=== PATIENT | male | born 1950 ===

== ENCOUNTER 2017-04-23 00:03 | Emergency (ER) | payer MEDICARE, OTHER ==
[2017-04-23 00:41] VITALS: BP 145/85; PULSE 93; RESP 16; TEMP 97.1; O2SAT 98
--- NOTE | 2017-04-23 01:41 | ED PDOC ---
Upper Extremity Pain/Injury Time Seen by Provider: 04/23/17 00:05 Chief Complaint (Nursing): Upper Extremity Problem/Injury Chief Complaint (Provider): Upper Extremity Problem History Per: Patient History/Exam Limitations: no limitations Additional Complaint(s): 67 year old male presents to ED with complaints of a left upper extremity problem and has a past medical history of hypercholesterolemia, HTN, and HIV. Patient notes that years ago he rhad surgery for a left arm fracture with plate. Notes that he believes the plate has moved and requests and evaluation. Patient denies any pain or fever. PCP: None Past Medical History Reviewed: Historical Data, Nursing Documentation, Vital Signs Vital Signs: Last Vital Signs Temp 97.1 F L 04/23/17 00:38 Pulse 93 H 04/23/17 00:38 Resp 16 04/23/17 00:38 BP 145/85 04/23/17 00:38 Pulse Ox 98 04/23/17 00:38 - Medical History PMH: Depression, Fractures, HIV, HTN, Hypercholesterolemia - Surgical History Other surgeries: Left arm surgery - Family History Family History: States: Unknown Family Hx - Home Medications Home Medications: Ambulatory Orders Medication Instructions Recorded Darunavir Ethanolate [Prezista] 600 mg PO 07/01/15 Efavirenz [Sustiva] 600 mg PO 07/01/15 [facility] 07/01/15 - Allergies Allergies/Adverse Reactions: Allergies Allergy/AdvReac Type Severity Reaction Status Date / Time No Known Allergies Allergy Verified 07/01/15 19:49 Review of Systems ROS Statement: Except As Marked, All Systems Reviewed And Found Negative Constitutional: Negative for: Fever Musculoskeletal: Negative for: Shoulder Pain, Arm Pain, Hand Pain Physical Exam - Reviewed Nursing Documentation Reviewed: Yes Vital Signs Reviewed: Yes - Physical Exam Appears: Positive for: Non-toxic, No Acute Distress Skin: Positive for: Normal Color, Warm, Dry Respiratory: Negative for: Respiratory Distress Pulses-Radial (L): 2+ Pulses-Radial (R): 2+ Extremity: Positive for: Normal ROM (full ROM to left hand digits), Other (Left wrist is in a splint. Neurovascularly intact). Negative for: Deformity, Swelling Neurologic/Psych: Positive for: Alert, Oriented. Negative for: Motor/Sensory Deficits - ECG O2 Sat by Pulse Oximetry: 98 (RA) Pulse Ox Interpretation: Normal Medical Decision Making Medical Decision Makin Initial impression: arm pain r/o fracture Initial plan: * Acetaminophen 650mg PO * XR ELBOW LEFT * XR FOREARM LEFT * Re-eval 0224 XR ELBOW LEFT FINDINGS Bones/joints: There is plate and screw fixation of the ulna. The hardware isn't completely visualized. No hardware complications are identified. Degenerative changes within the ulna humeral joint. No acute fracture. No dislocation. Soft tissues: Unremarkable. IMPRESSION: No acute findings. 0225 XR FOREARM LEFT FINDINGS Bones/joints: Plate and screw fixation of the ulna. Degenerative changes involving the ulnohumeral joint. No acute fracture. No dislocation. Soft tissues: Unremarkable. IMPRESSION: No acute findings. 0240 As both XRs show no fractures or acute disease, patient is stable for discharge home. Return precautions discussed with patient. Patient made aware of XR findings and instructed to follow up with clinic in 1-2 days as well as [facility] medical records for copies of XR readings. Scribe Attestation: Documented by Ritu Mcknight acting as a scribe for Rajeev Grijalva MD. Scribe Attestation: All medical record entries made by the Scribe were at my direction and personally dictated by me. I have reviewed the chart and agree that the record accurately reflects my personal performance of the history, physical exam, medical decision making, and the department course for this patient. I have also personally directed, reviewed, and agree with the discharge instructions and disposition. Disposition - Clinical Impression Clinical Impression: Chronic arm pain - Patient ED Disposition Is Patient to be Admitted: No Counseled Patient/Family Regarding: Studies Performed, Diagnosis, Need For Followup - Disposition Referrals: [facility] [Outside] Dennis Todd MD [Staff Provider] - Disposition: Routine/Home Disposition Time: 02:10 Condition: IMPROVED Additional Instructions: follow up with your orthopedist return to the ED with any worsening or concerning symptoms Instructions: Chronic Pain (DC) Forms: [employer] (Pashto)
--- NOTE | 2017-04-23 02:24 | RAD ---
EXAM: XR Left Elbow Complete, 3 or More Views CLINICAL HISTORY: 67 years old, male; Signs and symptoms; Other: Plate evaluation no pain; Prior surgery; Surgery date: 6+ months; Additional info: Injury TECHNIQUE: Frontal, lateral and oblique views of the left elbow. COMPARISON: No relevant prior studies available. FINDINGS: Bones/joints: There is plate and screw fixation of the ulna. The hardware isn't completely visualized. No hardware complications are identified. Degenerative changes within the ulna humeral joint. No acute fracture. No dislocation. Soft tissues: Unremarkable. IMPRESSION: No acute findings.
--- NOTE | 2017-04-23 02:25 | RAD ---
EXAM: XR Left Forearm, 2 Views CLINICAL HISTORY: 67 years old, male; Signs and symptoms; Other: Evaluation plate; Prior surgery; Surgery date: 6+ months; Surgery type: Plate elbow; Additional info: Injury TECHNIQUE: Frontal and lateral views of the left forearm. COMPARISON: No relevant prior studies available. FINDINGS: Bones/joints: Plate and screw fixation of the ulna. Degenerative changes involving the ulnohumeral joint. No acute fracture. No dislocation. Soft tissues: Unremarkable. IMPRESSION: No acute findings.
== END 2017-04-23 02:55 | disposition home or self-care (01) ==
LOC: H.ER 00:03
DX: M79.602 Pain in left arm (principal); Z98.890 Other specified postprocedural states; Z86.59 Personal history of other mental and behavioral disorders; E78.00 Pure hypercholesterolemia, unspecified; G89.29 Other chronic pain; I10 Essential (primary) hypertension